=== PATIENT | male | born 1965 | race Caucasian/White ===

== ENCOUNTER → 2016-10-04 | Emergency (ER) | payer OTHER ==
[~2016-10-04] VITALS: Ht 190.5 cm; Wt 109.8 kg
[~2016-10-04] MED LIST: AMOXICILLIN 50500 MG PO; BENZONATATE100 M1 PO; BYSTOLIC10 MG PO; HYCOFENIX 2.5-473 ML PO; LEVAQUIN 750 M750 MG PO; PREDNISONE 20MG20 MG PO; PROAIR HFA0.09 MG/AC IH; SPIRIVA RE2.5 MCG/Ac IH; SYMBICORT1 AE1 IH
--- NOTE | 2016-10-04 23:12 | Emergency Room Report ---
History of Present Illness Time Seen by [id number] Presenting Problem in Triage Pt arrived:Walked Presenting Problem:C/O COUGH, WEAKNESS, ALTERNATING CHILLS AND SWEATING, SOB, WHEEZING AND FLU LIKE SYMPTOMS. WAS SEEN AT [facility] 10/02/16 Onset of symptoms date/time:/ or onset unknown for:MEDICAL HX UNKNOWN Treatment Prior to Arrival: SEEN AT [facility] [employer] Provided by:NURSE Sepsis Risk Assessment: Temp: 98.5 B/P: 125/76 MAP: 92 Pulse: 84 Resp: 20 Recent fever? Y Clinical Suspician of Infection? Y Mental Status: 1 - Regular (Normal Baseline) Sepsis Risk:Low Sepsis Risk Have you (or family members/close friends) recently traveled outside the [place]? N If Yes, where/when: Have you had exposure to infectious disease within the past month? N TB? Other? Specify: Source patient, RN notes reviewed, family, RN/MD Exam Limitations no limitations Comment This is a 51-year-old male patient presented emergency room with productive cough, subjective fever, shortness of breath, since last Tuesday. Patient was seen in the urgent care on Tuesday and started on amoxicillin. He has a history of asthma for which she takes rescue inhalers, as well as maintenance inhalers (Advair, Symbicort). ALLERGIES Coded Allergies: No Known Allergies (10/04/16) Home Medications Reported Medications Benzonatate 100 MG PO TID #30 Amoxicillin Trihydrate (Amoxicillin 500MG) 500 MG PO BID #20 Tiotropium Banner (Spiriva Respimat) 2.5 MCG IH DAILY #4 Albuterol Sulfate (Proair Hfa) 1 PUFF IH Q6HP PRN SOB #8 BUDESONIDE/FORMOTEROL FUMARATE (Symbicort 160-4.5 Mcg Inhaler) 1 PUFF IH BID #10 NEBIVOLOL HCL (Bystolic) 10 MG PO DAILY #90 History Medical History General CAD? No Angina: No [place]: No Hypertension? No Hyperlipidemia? No CHF? No DVT? No PE? No COPD? No Asthma? Yes Anemia? No GERD? No Gastric ulcers? No GI Bleed? No Hernia? No Thyroid Problems? No Hypothyroidism? No CVA? No Seizures? No Diabetes? No Renal Insuffiency? No End Stage Renal Disease? No UTI? No Stones? No BPH? No GB Disease: No Nephritic Syndrome? No Asplenia? No Hepatitis? No Sickle Cell Disease? No Arthritis? No Migraines? No Cataracts? No Glaucoma? No MRSA? No HIV? No TB? No Anxiety? No Depression? No Cancer? No Immunization Hx DT/Tetanus 1-4 YRS Flu THIS YR Pneumonia NEVER Surgical Hx Previous Surgery?Y EGD Family History Family Hx Diabetes No CAD No Hypertension Yes Hyperlipidemia No Cancer Yes TB No Social History Smoking Hx Smoker: Never Smoker Tobacco: No Alcohol Alcohol: No Review of Systems All Other Systems Reviewed and Negative Constitutional see HPI, chills, fever, malaise, weakness Respiratory cough, shortness of breath, wheezing Physical Exam Vital Signs Vital Signs Date Time Temp Pulse Resp B/P Pulse O2 O2 Flow FiO2 Ox Delivery Rate 10/04 2326 98.5 84 20 125/76 95 10/04 2325 98.5 84 20 125/76 95 10/04 2247 98.5 84 20 125/76 95 General Appearance normal appearance, WD/WN, no apparent distress Ear, Nose, Throat hearing grossly normal, normal ENT inspection Respiratory Status Yes: trachea midline, chest symmetrical, non tender chest. No: respiratory distress. Lung Sounds bilateral: wheezing. 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 Yes Pancho was queried for this patient? Yes Reference #: [id number] Risks/benefits of using a controlled substance for treatment were discussed w/pt by me Comment Patient is currently on amoxicillin and Tessalon Perles, denying any improvement. He appears medically stable, in minimal distress. Advised patient results obtained, need to stop current treatment and sufficient to different antibiotics, also start him on steroids. If no better to follow-up with PCP within 2 days for reexamination. If that is not possible or worsening of current condition patient advised to return promptly to this, same, emergency room for evaluation Results/Orders Current Medication Orders Sig/Douglas Start time Last Medication Dose Route Stop Time Status Admin Prednisone 0 .STK-MED ONE 10/04 2320 DC .ROUTE Hydrocodone Bit/ 0 .STK-MED ONE 10/04 2318 DC Homatropine MBr PO Hydrocodone Bit/ 5 MG ONCE ONE 10/04 2314 DC 10/04 Homatropine MBr PO 10/04 Hydrocodone Bitart/ 0 .STK-MED ONE 10/04 2314 DC Acetaminophen PO Levofloxacin 500 MG ONCE ONE 10/04 2314 DC 10/04 PO 10/04 Levofloxacin 0 .STK-MED ONE 10/04 2314 DC .ROUTE Prednisone 60 MG ONCE ONE 10/04 2314 DC 10/04 PO 10/04 Orders Procedure Date/time Status CHEST(2 VIEWS-NOT PORTABLE) 10/04 2257 Active XRAY/CT/US XRAY/CT/US XRAY chest XR interpretation by reviewed by me Xray Results no infiltrates, normal heart size, normal lung inflation marcia Departure Departure Time of Disposition 2310 Disposition DC Home or Self Care(routine) Clinical Impression Primary Impression: Acute bronchitis Qualifiers: Bronchitis organism: unspecified organism Qualified Code: J20.9 - Acute bronchitis, unspecified Condition STABLE Referrals Panchito Blankenship MD (Family) Patient Instructions DI for Acute Bronchitis Additional Instructions Please discontinue the Tessalon Perles and Amoxicillin at this time. Please take the new medications prescribed as directed. If not better follow-up with your family doctor in 2-3 days. Discharge Counseling Counseled pt/family regarding diagnosis, test results, medications/RX, home care, follow up needs Comment Please discontinue the Tessalon Perles and Amoxicillin at this time. Please take the new medications prescribed as directed. If not better follow-up with your family doctor in 2-3 days. Prescriptions Current Visit Scripts Prednisone (Prednisone 20MG) 20 MG PO TID #15 TAB Levofloxacin (Levaquin 750mg) 750 MG PO DAILY #6 TAB Hydrocodone/Pseudoephed/Guaif (Hycofenix 2.5-30-200 MG/5 Ml) 5 ML PO QIDP PRN cough #60 ML ED Critical Care Critical Care No at [id number]
--- NOTE | 2016-10-04 23:12 | Emergency Room Report ---
History of Present Illness Time Seen by [id number] Presenting Problem in Triage Pt arrived:Walked Presenting Problem:C/O COUGH, WEAKNESS, ALTERNATING CHILLS AND SWEATING, SOB, WHEEZING AND FLU LIKE SYMPTOMS. WAS SEEN AT [facility] 10/02/16 Onset of symptoms date/time:/ or onset unknown for:MEDICAL HX UNKNOWN Treatment Prior to Arrival: SEEN AT [facility] [employer] Provided by:NURSE Sepsis Risk Assessment: Temp: 98.5 B/P: 125/76 MAP: 92 Pulse: 84 Resp: 20 Recent fever? Y Clinical Suspician of Infection? Y Mental Status: 1 - Regular (Normal Baseline) Sepsis Risk:Low Sepsis Risk Have you (or family members/close friends) recently traveled outside the [place]? N If Yes, where/when: Have you had exposure to infectious disease within the past month? N TB? Other? Specify: Source patient, RN notes reviewed, family, RN/MD Exam Limitations no limitations Comment This is a 51-year-old male patient presented emergency room with productive cough, subjective fever, shortness of breath, since last Tuesday. Patient was seen in the urgent care on Tuesday and started on amoxicillin. He has a history of asthma for which she takes rescue inhalers, as well as maintenance inhalers (Advair, Symbicort). ALLERGIES Coded Allergies: No Known Allergies (10/04/16) Home Medications Reported Medications Benzonatate 100 MG PO TID #30 Amoxicillin Trihydrate (Amoxicillin 500MG) 500 MG PO BID #20 Tiotropium Ecru (Spiriva Respimat) 2.5 MCG IH DAILY #4 Albuterol Sulfate (Proair Hfa) 1 PUFF IH Q6HP PRN SOB #8 BUDESONIDE/FORMOTEROL FUMARATE (Symbicort 160-4.5 Mcg Inhaler) 1 PUFF IH BID #10 NEBIVOLOL HCL (Bystolic) 10 MG PO DAILY #90 History Medical History General CAD? No Angina: No NM: No Hypertension? No Hyperlipidemia? No CHF? No DVT? No PE? No COPD? No Asthma? Yes Anemia? No GERD? No Gastric ulcers? No GI Bleed? No Hernia? No Thyroid Problems? No Hypothyroidism? No CVA? No Seizures? No Diabetes? No Renal Insuffiency? No End Stage Renal Disease? No UTI? No Stones? No BPH? No GB Disease: No Nephritic Syndrome? No Asplenia? No Hepatitis? No Sickle Cell Disease? No Arthritis? No Migraines? No Cataracts? No Glaucoma? No MRSA? No HIV? No TB? No Anxiety? No Depression? No Cancer? No Immunization Hx DT/Tetanus 1-4 YRS Flu THIS YR Pneumonia NEVER Surgical Hx Previous Surgery?Y EGD Family History Family Hx Diabetes No CAD No Hypertension Yes Hyperlipidemia No Cancer Yes TB No Social History Smoking Hx Smoker: Never Smoker Tobacco: No Alcohol Alcohol: No Review of Systems All Other Systems Reviewed and Negative Constitutional see HPI, chills, fever, malaise, weakness Respiratory cough, shortness of breath, wheezing Physical Exam Vital Signs Vital Signs Date Time Temp Pulse Resp B/P Pulse O2 O2 Flow FiO2 Ox Delivery Rate 10/04 2326 98.5 84 20 125/76 95 10/04 2325 98.5 84 20 125/76 95 10/04 2247 98.5 84 20 125/76 95 General Appearance normal appearance, WD/WN, no apparent distress Ear, Nose, Throat hearing grossly normal, normal ENT inspection Respiratory Status Yes: trachea midline, chest symmetrical, non tender chest. No: respiratory distress. Lung Sounds bilateral: wheezing. 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 Yes Pancho was queried for this patient? Yes Reference #: [id number] Risks/benefits of using a controlled substance for treatment were discussed w/pt by me Comment Patient is currently on amoxicillin and Tessalon Perles, denying any improvement. He appears medically stable, in minimal distress. Advised patient results obtained, need to stop current treatment and sufficient to different antibiotics, also start him on steroids. If no better to follow-up with PCP within 2 days for reexamination. If that is not possible or worsening of current condition patient advised to return promptly to this, same, emergency room for evaluation Results/Orders Current Medication Orders Sig/Douglas Start time Last Medication Dose Route Stop Time Status Admin Prednisone 0 .STK-MED ONE 10/04 2320 DC .ROUTE Hydrocodone Bit/ 0 .STK-MED ONE 10/04 2318 DC Homatropine MBr PO Hydrocodone Bit/ 5 MG ONCE ONE 10/04 2314 DC 10/04 Homatropine MBr PO 10/04 Hydrocodone Bitart/ 0 .STK-MED ONE 10/04 2314 DC Acetaminophen PO Levofloxacin 500 MG ONCE ONE 10/04 2314 DC 10/04 PO 10/04 Levofloxacin 0 .STK-MED ONE 10/04 2314 DC .ROUTE Prednisone 60 MG ONCE ONE 10/04 2314 DC 10/04 PO 10/04 Orders Procedure Date/time Status CHEST(2 VIEWS-NOT PORTABLE) 10/04 2257 Active XRAY/CT/US XRAY/CT/US XRAY chest XR interpretation by reviewed by me Xray Results no infiltrates, normal heart size, normal lung inflation marcia Departure Departure Time of Disposition 2310 Disposition DC Home or Self Care(routine) Clinical Impression Primary Impression: Acute bronchitis Qualifiers: Bronchitis organism: unspecified organism Qualified Code: J20.9 - Acute bronchitis, unspecified Condition STABLE Referrals Panchito Blankenship MD (Family) Patient Instructions DI for Acute Bronchitis Additional Instructions Please discontinue the Tessalon Perles and Amoxicillin at this time. Please take the new medications prescribed as directed. If not better follow-up with your family doctor in 2-3 days. Discharge Counseling Counseled pt/family regarding diagnosis, test results, medications/RX, home care, follow up needs Comment Please discontinue the Tessalon Perles and Amoxicillin at this time. Please take the new medications prescribed as directed. If not better follow-up with your family doctor in 2-3 days. Prescriptions Current Visit Scripts Prednisone (Prednisone 20MG) 20 MG PO TID #15 TAB Levofloxacin (Levaquin 750mg) 750 MG PO DAILY #6 TAB Hydrocodone/Pseudoephed/Guaif (Hycofenix 2.5-30-200 MG/5 Ml) 5 ML PO QIDP PRN cough #60 ML ED Critical Care Critical Care No at 0633
[2016-10-04 23:25] VITALS: BP 125/76
--- OUTSIDE RECORDS SUMMARY | 2016-10-04 23:32 | External Medical Summary Rpt ---
Author Author ANTONINO Address Unknown Phone [email or web address] Purpose Continuity of Care Document - through 2016
--- OUTSIDE RECORDS SUMMARY | 2016-10-04 23:32 | External Medical Summary Rpt ---
Author Author [employer] Organization [employer] Address Unknown Phone Unavailable Purpose Continuity of Care Document - through 2016
--- OUTSIDE RECORDS SUMMARY | 2016-10-04 23:32 | External Medical Summary Rpt ---
Author Author ANTONINO Address Unknown Phone [email or web address] Purpose Continuity of Care Document - through 2016
--- OUTSIDE RECORDS SUMMARY | 2016-10-04 23:33 | External Medical Summary Rpt ---
Demographics Preferred Language Prydeinig Marital Status Unknown Zoroastrianism Affiliation Unknown Race Unknown Ethnic Group Unknown Author Author , ANTONINO MUÑIZ Address Unknown Phone Immunization Unable to retrieve immunization data due to connection failure with Immunization Registry. Please try again later.
--- OUTSIDE RECORDS SUMMARY | 2016-10-04 23:33 | External Medical Summary Rpt ---
Demographics Preferred Language Citizen Of [place] Marital Status Unknown Orthodox Affiliation Unknown Race Unknown Ethnic Group Unknown Author Author , ANTONINO MUÑIZ Address Unknown Phone Immunization Unable to retrieve immunization data due to connection failure with Immunization Registry. Please try again later.
--- NOTE | 2016-10-05 07:55 | RADIOLOGY REPORT PS360 ---
CHEST(2 VIEWS-NOT PORTABLE) INDICATION: Shortness of breath COMPARISON: None FINDINGS: The lung silveira are well expanded and appear clear of infiltrate. The cardiomediastinal silhouette and vascularity are normal. The costophrenic angles are clear. The bony thorax is normal except for mild degenerative changes mid thoracic spine.. IMPRESSION: Normal chest.
== END ==
LOC: ER 22:43
DX: J20.9 Acute bronchitis, unspecified (principal)